=== PATIENT | female | born 1970 | race Caucasian/White ===

== ENCOUNTER 2016-06-05 11:14 | Emergency (ER) | payer SELFPAY ==
[~2016-06-05] VITALS: Ht 167.6 cm; Wt 104.4 kg
--- NOTE | 2016-06-05 12:20 | RAD ---
Exam performed: One view chest. Indication: palpitations/ ER 12. Patient had difficulty breathing last night with thinning of both hands. Date of Service: 06/05/2016 1:47 PM Comparison: None available. Single AP upright portable view chest findings: Cardiomediastinal silhouette is within limits of normal. No acute infiltrates, effusion or pneumothorax is detected. The bony structures are normal. Impression: No acute cardiopulmonary process is detected.
[2016-06-05 12:34] LABS: BASO % 1 % (0-3); EOS % 2 % (0-3); HEMATOCRIT 42.6 % (36.0-47.0); HEMOGLOBIN 14.8 g/dL (12.0-15.5); LYMPH # 2.1 x10^3/uL (1.0-4.8); LYMPH % 29 % (24-48); MEAN CORPUSCULAR HEMOGLOBIN 31 pg (25-35); MEAN CORPUSCULAR HGB CONC 35 g/dL (31-37); MEAN CORPUSCULAR VOLUME 89 fL (79-100); MONO % 6 % (0-9); NEUT % 62 % (31-73); PLATELET COUNT 234 x10^3/uL (140-400); RED BLOOD COUNT 4.79 x10^6/uL (3.50-5.40); RED CELL DISTRIBUTION WIDTH 12.6 % (11.5-14.5); WHITE BLOOD COUNT 7.1 x10^3/uL (4.0-11.0)
[2016-06-05 12:46] LABS: PROTHROMBIN TIME PATIENT 12.4 SEC (11.7-14.0)
--- NOTE | 2016-06-05 12:46 | RAD ---
PQRS Compliance Statement: One or more of the following individualized dose reduction techniques were utilized for this examination: 1. Automated exposure control 2. Adjustment of the mA and/or kV according to patient size 3. Use of iterative reconstruction technique CT of the head without contrast, 06/05/2016: History: Arm weakness and tingling The ventricles are within normal limits in size. There is no shift of the midline structures. There is no evidence of acute intracranial hemorrhage or mass effect. There is minimal mucosal thickening along the posterior aspect of the left maxillary sinus. IMPRESSION: No acute intracranial abnormality is detected.
[2016-06-05 12:48] LABS: CALCIUM 9.1 mg/dL (8.5-10.1); CREATININE 0.7 mg/dL (0.6-1.0); GFR 89.7; POTASSIUM 4.4 mmol/L (3.5-5.1)
[2016-06-05 13:00] LABS: CKMB INDEX 1.1 % (0-4); CKMB MASS 1.1 ng/mL (0.0-3.6)
[2016-06-05 13:10] LABS: BILIRUBIN,URINE NEGATIVE (NEG); GLUCOSE,URINE >=1000 mg/dL (NEG); NITRITE,URINE NEGATIVE (NEG); PROTEIN,URINE NEGATIVE (NEG-TRACE); UROBILINOGEN,URINE 0.2 mg/dL (0.2 mg/dL)
[2016-06-05 13:19] LABS: BACTERIA,URINE 0 /HPF (0-FEW); SQUAMOUS EPITHELIAL CELL,UR MOD /LPF; WBC,URINE 0 /HPF (0-4)
[2016-06-05 14:00] VITALS: BP 126/85
--- NOTE | 2016-06-05 14:13 | PHYS DOC ---
Past Medical History Past Medical History: Diabetes-Type II, High Cholesterol, Hypertension Past Surgical History: Other Additional Past Surgical Histo: D&C Alcohol Use: None Drug Use: None Adult General Chief Complaint Chief Complaint: WEAKNESS/GENERALIZED HPI HPI Patient is a 45 year old female with history of hypertension, high cholesterol , diabetes type 2 currently on insulin and remote history of palpitation who presents today with generalized weakness and tingling to bilateral fingers that occurred while she was having breakfast at 9 AM. Patient states the sensation is gone. Patient denies any headaches chest pain or shortness of breath. Patient states she had a normal stress test 15 years ago. She states she currently follows up with her PCP and she is on propranolol for hypertension. Review of Systems Review of Systems Constitutional: Generalized weakness Eyes: Denies change in visual acuity, redness, or eye pain [] HENT: Denies nasal congestion or sore throat [] Respiratory: Denies cough or shortness of breath [] Cardiovascular: No additional information not addressed in HPI [] GI: Denies abdominal pain, nausea, vomiting, bloody stools or diarrhea [] : Denies dysuria or hematuria [] Musculoskeletal: Denies back pain or joint pain [] Integument: Denies rash or skin lesions [] Neurologic: Tingling to fingers Endocrine: Denies polyuria or polydipsia [] Allergies Allergies Allergies Coded Allergies Type Severity Reaction Last Updated Verified No Known Drug Allergies 04/24/15 No Physical Exam Physical Exam Constitutional: Well developed, well nourished, no acute distress, non-toxic appearance. [] HENT: Normocephalic, atraumatic, bilateral external ears normal, oropharynx moist, no oral exudates, nose normal. [] Eyes: PERRLA, EOMI, conjunctiva normal, no discharge. [] Neck: Normal range of motion, no tenderness, supple, no stridor. [] Cardiovascular:Heart rate regular rhythm, no murmur [] Lungs & Thorax: Bilateral breath sounds clear to auscultation [] Abdomen: Bowel sounds normal, soft, no tenderness, no masses, no pulsatile masses. [] Skin: Warm, dry, no erythema, no rash. [] Back: No tenderness, no CVA tenderness. [] Extremities: No tenderness, no cyanosis, no clubbing, ROM intact, no edema. +2 bilateral pedal and radial pulses. Adequate ulna radial and media sensation to bilateral fingers. Neurologic: Alert and oriented X 3, normal motor function, normal sensory function, no focal deficits noted. Cranial nerves II through XII intact. Adequate sensations to bilateral upper and lower extremities. Psychologic: Affect normal, judgement normal, mood normal. [] Current Patient Data Vital Signs Vital Signs Date Time Temp Pulse Resp B/P Pulse Ox O2 Delivery O2 Flow Rate FiO2 06/05/16 14:00 76 126/85 97 Room Air 06/05/16 11:25 98.4 17 98.4 Lab Values Laboratory Tests Test 06/05/16 12:24 06/05/16 12:50 White Blood Count 7.1x10^3/uL (4.0-11.0) Red Blood Count 4.79x10^6/uL (3.50-5.40) Hemoglobin 14.8g/dL (12.0-15.5) Hematocrit 42.6% (36.0-47.0) Mean Corpuscular Volume 89fL (79-100) Mean Corpuscular Hemoglobin 31pg (25-35) Mean Corpuscular Hemoglobin Concent 35g/dL (31-37) Red Cell Distribution Width 12.6% (11.5-14.5) Platelet Count 234x10^3/uL (140-400) Neutrophils (%) (Auto) 62% (31-73) Lymphocytes (%) (Auto) 29% (24-48) Monocytes (%) (Auto) 6% (0-9) Eosinophils (%) (Auto) 2% (0-3) Basophils (%) (Auto) 1% (0-3) Neutrophils # (Auto) 4.4x10^3uL (1.8-7.7) Lymphocytes # (Auto) 2.1x10^3/uL (1.0-4.8) Monocytes # (Auto) 0.5x10^3/uL (0.0-1.1) Eosinophils # (Auto) 0.2x10^3/uL (0.0-0.7) Basophils # (Auto) 0.0x10^3/uL (0.0-0.2) Prothrombin Time 12.4SEC (11.7-14.0) Prothrombin Time INR 1.0 (0.8-1.1) D-Dimer (Zuleyka) 0.33ug/mlFEU (0.00-0.50) Sodium Level 140mmol/L (136-145) Potassium Level 4.4mmol/L (3.5-5.1) Chloride Level 103mmol/L (98-107) Carbon Dioxide Level 26mmol/L (21-32) Anion Gap 11 (6-14) Blood Urea Nitrogen 14mg/dL (7-20) Creatinine 0.7mg/dL (0.6-1.0) Estimated GFR (Cockcroft-Gault) 89.7 Glucose Level 308mg/dL (70-99) H Calcium Level 9.1mg/dL (8.5-10.1) Magnesium Level 2.0mg/dL (1.8-2.4) Creatine Kinase 96U/L (26-192) Creatine Kinase MB (Mass) 1.1ng/mL (0.0-3.6) Creatine Kinase MB Relative Index 1.1% (0-4) Troponin I Quantitative < 0.017ng/mL (0.000-0.055) SN-Jax-W-Type Natriuretic Peptide 19pg/mL (0-124) Thyroid Stimulating Hormone (TSH) 2.283uIU/mL (0.358-3.74) Urine Collection Type Unknown Urine Color Yellow Urine Clarity Clear Urine pH 6.0 Urine Specific [place] >=1.030 Urine Protein Negativemg/dL (NEG-TRACE) Urine Glucose (UA) >=1000mg/dL (NEG) Urine Ketones (Stick) Negativemg/dL (NEG) Urine Blood Negative (NEG) Urine Nitrite Negative (NEG) Urine Bilirubin Negative (NEG) Urine Urobilinogen Dipstick 0.2mg/dL (0.2 mg/dL) Urine Leukocyte Esterase Negative (NEG) Urine RBC 3-5/HPF (0-2) Urine WBC 0/HPF (0-4) Urine Squamous Epithelial Cells Mod/LPF Urine Bacteria 0/HPF (0-FEW) Laboratory Tests 06/05/16 12:24 Laboratory Tests 06/05/16 12:24 EKG EKG [] Radiology/Procedures Radiology/Procedures [] Course & Med Decision Making Course & Med Decision Making Pertinent Labs and Imaging studies reviewed. (See chart for details) Patient is in the ED with complaint of tingling to bilateral fingers as well as generalized weakness that occurred today at 9 am while having breakfast. Patient denies any symptoms right now. Denies any chest pain or shortness of breath. She states she has a lot of stress in her life right now. EKG interpreted by Dr. Nader marrufo, leftward axis, QRS interval 86, heart rate 74. CBC with no acute findings. Chest x-ray interpreted by radiologist is negative for any acute findings, CT of the head is negative for any acute findings, troponin is normal, CK-MB is normal. CMP with glucose of 308. Patient states she is supposed to take her noon insulin. She requested to take it at home a note from the ED. Her numbness or tingling to bilateral hands could be neuropathy from diabetes which we talked about in the ED. I requested patient follow-up with the PCP next week. Her vitals are stable. She is provided return precautions and discharged in stable condition. Dragon Disclaimer Dragon Disclaimer This electronic medical record was generated, in whole or in part, using a voice recognition dictation system. Departure Departure Impression: Primary Impression: Neuropathy in diabetes Additional Impressions: Weakness Hyperglycemia Disposition: 01 HOME, SELF-CARE Condition: STABLE Referrals: UNKNOWN PCP NAME (PCP) Follow-up with your own doctor as soon as possible Patient Instructions: Diabetic Neuropathy, Weakness, [id number] Additional Instructions: You were seen for multiple complaints. Your cardiac workup is negative. Your chest xray and Ct of the head were normal. Your lab work shows you have diabetes. Your blood sugar was 308. Use your insulin as prescribed by your doctor. Push fluids. Follow-up with your doctor in the next 1-7 days. Come back to the ED for any concerning symptoms or worsening of current symptoms. Problem Qualifiers Primary Impression: Neuropathy in diabetes Diabetes mellitus type: type 2 Diabetes mellitus complication detail: diabetic polyneuropathy Qualified Code: E11.42 - Type 2 diabetes mellitus with diabetic polyneuropathy MILDRED CARROLL APRN Jun 05, 2016 14:13
--- NOTE | 2016-06-05 15:13 | EKG ---
[facility] [address] [place] [address] Test Date: 2016-06-05 Test Time: 11:25:26 Pat Name: KIM NIXON Department: Room: Gender: F Platform Engineer: : 1970 Requested By: MILDRED CARROLL Order Number: [id number] Reading MD: Giovanny Luna Measurements Intervals [place] Rate: 74 P: 25 KS: 164 QRS: -15 QRSD: 86 T: 23 QT: 356 QTc: 400 Interpretive Statements SINUS RHYTHM LEFTWARD AXIS RI6.01 Unconfirmed report No previous ECG available for comparison Electronically Signed On 06-08-2016 13:56:25 CLAY WASHER by Giovanny Luna
== END 2016-06-05 14:20 | disposition home or self-care (01) ==
LOC: ER 11:14
DX: E11.40 Type 2 diabetes mellitus with diabetic neuropathy, unspecified (principal); R53.1 Weakness; E11.65 Type 2 diabetes mellitus with hyperglycemia; E78.00 Pure hypercholesterolemia, unspecified; I10 Essential (primary) hypertension
CPT/HCPCS: 36415; 70450; 71010; 80048; 81001; 82553; 83735; 83880; 84443; 84484; 85027; 85379; 85610; 93005; 99285-25

== ENCOUNTER 2018-07-05 10:56 | Emergency (ER) | payer SELFPAY ==
[~2018-07-05] VITALS: Ht 167.6 cm; Wt 99.8 kg
[2018-07-05 11:18] VITALS: BP 173/97
[2018-07-05] MEDS ORDERED: IV NORMAL SALINE 1000ML BAG 1,000 ML IV ONE (11:30)
[2018-07-05] MEDS ORDERED: MECLIZINE HCL 12.5 MG TABLET. PO ONE (11:30)
[2018-07-05] MEDS ORDERED: ONDANSETRON PF 4 MG/2 ML VIAL. IV ONE (11:30)
[2018-07-05 11:36] LABS: BILIRUBIN,URINE NEGATIVE (NEG); CLARITY,URINE CLEAR; COLOR,URINE YELLOW; NITRITE,URINE NEGATIVE (NEG); PROTEIN,URINE NEGATIVE (NEG-TRACE); UROBILINOGEN,URINE 0.2 mg/dL (0.2 mg/dL)
[2018-07-05 11:40] LABS: SQUAMOUS EPITHELIAL CELL,UR MANY /LPF
[2018-07-05 11:41] LABS: BACTERIA,URINE FEW /HPF (0-FEW); RBC,URINE 0 /HPF (0-2)
[2018-07-05 11:42] LABS: BARBITURATES NEG (NEG); BENZODIAZEPINES NEG (NEG); CANNABINOIDS NEG (NEG); COCAINE NEG (NEG); METHADONE NEG (NEG); OPIATES NEG (NEG); PHENCYCLIDINE NEG (NEG)
[2018-07-05 11:43] LABS: AMPHETAMINE/METHAMPHETAMINE NEG (NEG)
[2018-07-05 11:58] LABS: BASO % 1 % (0-3); EOS # 0.1 x10^3/uL (0.0-0.7); EOS % 1 % (0-3); HEMATOCRIT 42.3 % (36.0-47.0); LYMPH # 1.8 x10^3/uL (1.0-4.8); LYMPH % 25 % (24-48); MEAN CORPUSCULAR HEMOGLOBIN 30 pg (25-35); MEAN CORPUSCULAR HGB CONC 33 g/dL (31-37); MEAN CORPUSCULAR VOLUME 90 fL (79-100); MONO # 0.4 x10^3/uL (0.0-1.1); MONO % 6 % (0-9); NEUT # 4.9 x10^3uL (1.8-7.7); NEUT % 67 % (31-73); PLATELET COUNT 245 x10^3/uL (140-400); RED BLOOD COUNT 4.71 x10^6/uL (3.50-5.40); RED CELL DISTRIBUTION WIDTH 13.1 % (11.5-14.5); WHITE BLOOD COUNT 7.2 x10^3/uL (4.0-11.0)
--- NOTE | 2018-07-05 12:02 | RAD ---
EXAM: Chest, single view. HISTORY: Cough. Dizziness. COMPARISON: 06/05/2016. FINDINGS: A frontal view of the chest is obtained. There is no infiltrate, pleural effusion or pneumothorax. The heart is normal in size. IMPRESSION: No acute pulmonary finding. Electronically signed by: Jeanette Byrd MD (07/05/2018 11:58 AM) [facility]
[2018-07-05 12:17] LABS: CALCIUM 9.1 mg/dL (8.5-10.1); CREATININE 0.8 mg/dL (0.6-1.0); GFR 76.2; POTASSIUM 4.2 mmol/L (3.5-5.1)
[2018-07-05 12:23] LABS: ALBUMIN 3.4 g/dL (3.4-5.0); ALBUMIN/GLOBULIN RATIO 0.9 (1.0-1.7); MAGNESIUM 1.9 mg/dL (1.8-2.4); TOTAL BILIRUBIN 0.5 mg/dL (0.2-1.0); TOTAL PROTEIN 7.4 g/dL (6.4-8.2)
--- NOTE | 2018-07-05 12:40 | EKG ---
[facility] [address] [place] [address] Test Date: 2018-07-05 Test Time: 11:38:23 Pat Name: KIM NIXON Department: Room: Gender: F Iap Displays Analyst: : 1970 Requested By: MILDRED CARROLL Order Number: [id number] Reading MD: Juventino Beckman MD Measurements Intervals [place] Rate: 73 P: MA: QRS: -14 QRSD: 84 T: 9 QT: 366 QTc: 406 Interpretive Statements SR NON-SPECIFIC ST/T CHANGES Electronically Signed On 07-05-2018 15:51:52 CDT by Juventino Beckman MD
--- NOTE | 2018-07-05 13:34 | PHYS DOC ---
Past Medical History Past Medical History: Diabetes-Type II, GERD, High Cholesterol, Hypertension Past Surgical History: Other Additional Past Surgical Histo: D&C Alcohol Use: None Drug Use: None Adult General Chief Complaint Chief Complaint: ABDOMINAL PAIN HPI HPI Patient is a 47 year old female with a history of hypertension, diabetes type 2 , high cholesterol, who presents to the ED today with multiple complaints. We asked her what she is being seen for, patient requested her phone from her daughter, she had at least of chief complaints almost a page length on the screen of the phone. They include elevated blood glucose, headache, dizziness, nausea, bilateral upper abdomen pain, kidney pain, concern she could have a UTI or kidney infection, right ear pain, cough for months, dry mouth, thirsty. Most of the symptoms have been going on for a while. Patient denies any fever. Denies any diarrhea or vomiting. She states her blood glucose usually runs high but she is on several medications including insulin which she did not use after eating today. Review of Systems Review of Systems Constitutional: Denies fever or chills [] Eyes: Denies change in visual acuity, redness, or eye pain [] HENT: Denies nasal congestion or sore throat [] Respiratory: Reports chronic cough, denies shortness of breath [] Cardiovascular: No additional information not addressed in HPI [] GI: Reports nausea. Denies abdominal pain, nausea, bloody stools or diarrhea [] : Reports kidney pain. Denies dysuria or hematuria [] Musculoskeletal: Denies back pain or joint pain [] Integument: Denies rash or skin lesions [] Neurologic: Reports dizziness, headache denies focal weakness or sensory changes [] Endocrine: Reports hyperglycemia All other systems were reviewed and found to be within normal limits, except as documented in this note. Current Medications Current Medications Current Medications Medications (Trade) Dose Ordered Sig/Scarlett Start Time Stop Time Status Last Admin Dose Admin Meclizine HCl (Antivert) 25 mg 1X ONCE 07/05/18 11:30 07/05/18 11:31 DC Ondansetron HCl (Zofran) 4 mg 1X ONCE 07/05/18 11:30 07/05/18 11:31 DC Sodium Chloride 1,000 ml @ 1,000 mls/hr 1X ONCE 07/05/18 11:30 07/05/18 12:29 DC Allergies Allergies Allergies Coded Allergies Type Severity Reaction Last Updated Verified No Known Drug Allergies 04/24/15 No Physical Exam Physical Exam Constitutional: Well developed, well nourished, no acute distress, non-toxic appearance. [] HENT: Normocephalic, atraumatic, bilateral external ears normal, oropharynx moist, no oral exudates, nose normal. [] Eyes: PERRLA, EOMI, conjunctiva normal, no discharge. [] Neck: Normal range of motion, no tenderness, supple, no stridor. [] Cardiovascular:Heart rate regular rhythm, no murmur [] Lungs & Thorax: Bilateral breath sounds clear to auscultation [] Abdomen: Bowel sounds normal, soft, no tenderness, no masses, no pulsatile masses. [] Skin: Warm, dry, no erythema, no rash. [] Back: No tenderness, no CVA tenderness. [] Extremities: No tenderness, no cyanosis, no clubbing, ROM intact, no edema. [] Neurologic: Alert and oriented X 3, normal motor function, normal sensory function, no focal deficits noted. [] Psychologic: Affect normal, judgement normal, mood normal. [] Current Patient Data Vital Signs Vital Signs Date Time Temp Pulse Resp B/P (MAP) Pulse Ox O2 Delivery O2 Flow Rate FiO2 07/05/18 11:18 98.4 79 18 173/97 (122) 98 Room Air 98.4 Lab Values Laboratory Tests Test 07/05/18 10:00 07/05/18 11:16 07/05/18 11:45 Urine Collection Type Unknown Urine Color Yellow Urine Clarity Clear Urine pH 5.0 Urine Specific [place] >=1.030 Urine Protein Negative mg/dL (NEG-TRACE) Urine Glucose (UA) >=1000 mg/dL (NEG) Urine Ketones (Stick) Negative mg/dL (NEG) Urine Blood Negative (NEG) Urine Nitrite Negative (NEG) Urine Bilirubin Negative (NEG) Urine Urobilinogen Dipstick 0.2 mg/dL (0.2 mg/dL) Urine Leukocyte Esterase Negative (NEG) Urine RBC 0 /HPF (0-2) Urine WBC 1-4 /HPF (0-4) Urine Squamous Epithelial Cells Many /LPF Urine Bacteria Few /HPF (0-FEW) Urine Opiates Screen Neg (NEG) Urine Methadone Screen Neg (NEG) Urine Barbiturates Neg (NEG) Urine Phencyclidine Screen Neg (NEG) Urine Amphetamine/Methamphetamine Neg (NEG) Urine Benzodiazepines Screen Neg (NEG) Urine Cocaine Screen Neg (NEG) Urine Cannabinoids Screen Neg (NEG) Urine Ethyl Alcohol Neg (NEG) Glucose (Fingerstick) 312 mg/dL (70-99) H White Blood Count 7.2 x10^3/uL (4.0-11.0) Red Blood Count 4.71 x10^6/uL (3.50-5.40) Hemoglobin 14.0 g/dL (12.0-15.5) Hematocrit 42.3 % (36.0-47.0) Mean Corpuscular Volume 90 fL (79-100) Mean Corpuscular Hemoglobin 30 pg (25-35) Mean Corpuscular Hemoglobin Concent 33 g/dL (31-37) Red Cell Distribution Width 13.1 % (11.5-14.5) Platelet Count 245 x10^3/uL (140-400) Neutrophils (%) (Auto) 67 % (31-73) Lymphocytes (%) (Auto) 25 % (24-48) Monocytes (%) (Auto) 6 % (0-9) Eosinophils (%) (Auto) 1 % (0-3) Basophils (%) (Auto) 1 % (0-3) Neutrophils # (Auto) 4.9 x10^3uL (1.8-7.7) Lymphocytes # (Auto) 1.8 x10^3/uL (1.0-4.8) Monocytes # (Auto) 0.4 x10^3/uL (0.0-1.1) Eosinophils # (Auto) 0.1 x10^3/uL (0.0-0.7) Basophils # (Auto) 0.0 x10^3/uL (0.0-0.2) Sodium Level 139 mmol/L (136-145) Potassium Level 4.2 mmol/L (3.5-5.1) Chloride Level 102 mmol/L (98-107) Carbon Dioxide Level 25 mmol/L (21-32) Anion Gap 12 (6-14) Blood Urea Nitrogen 7 mg/dL (7-20) Creatinine 0.8 mg/dL (0.6-1.0) Estimated GFR (Cockcroft-Gault) 76.2 BUN/Creatinine Ratio 9 (6-20) Glucose Level 354 mg/dL (70-99) H Calcium Level 9.1 mg/dL (8.5-10.1) Magnesium Level 1.9 mg/dL (1.8-2.4) Total Bilirubin 0.5 mg/dL (0.2-1.0) Aspartate Amino Transferase (AST) 28 U/L (15-37) Alanine Aminotransferase (ALT) 45 U/L (14-59) Alkaline Phosphatase 120 U/L (46-116) H Creatine Kinase 78 U/L (26-192) Creatine Kinase MB (Mass) 1.6 ng/mL (0.0-3.6) Creatine Kinase MB Relative Index 2.1 % (0-4) Troponin I Quantitative < 0.017 ng/mL (0.000-0.055) IC-Gik-F-Type Natriuretic Peptide 22 pg/mL (0-124) Total Protein 7.4 g/dL (6.4-8.2) Albumin 3.4 g/dL (3.4-5.0) Albumin/Globulin Ratio 0.9 (1.0-1.7) L Lipase 156 U/L (73-393) Thyroid Stimulating Hormone (TSH) 2.046 uIU/mL (0.358-3.74) Laboratory Tests 07/05/18 11:45 Laboratory Tests 07/05/18 11:45 EKG EKG 11:[address] Crabtree sinus rhythm heart rate 73 no STEMI Radiology/Procedures Radiology/Procedures [] Course & Med Decision Making Course & Med Decision Making Pertinent Labs and Imaging studies reviewed. (See chart for details) This is a 47-year-old female patient who presents to the ED today with multiple complaints including elevated blood glucose, headache, dizziness, nausea, bilateral upper abdomen pain, kidney pain, concern she could have a UTI or kidney infection, right ear pain, cough for months, dry mouth, thirsty. Most of the symptoms have been going on for a while. Patient also started refusing part of the workup. She refused IVs. Refused CT of the head. Chest x-rays negative for any acute findings, EKG was negative. CBC with no acute findings, CMP with glucose of 354, anion gap is normal. Urine analysis is negative for infection.Patient reminded about blood glucose management, her blood pressure was also 173/97, she was reminded about blood pressure management. She apparently states she eats foods like pastas, potatoes , bread which are elevating her glucose. Reminded patient of a diabetic diet and HTN diet. Follow-up with primary care doctor. She refused insulin in the ED. Dragon Disclaimer Dragon Disclaimer This electronic medical record was generated, in whole or in part, using a voice recognition dictation system. Departure Departure Impression: Primary Impression: Hyperglycemia Additional Impressions: Dizziness HTN (hypertension) Disposition: HOME, SELF-CARE Condition: STABLE Referrals: UNKNOWN PCP NAME (PCP) follow up with your doctor in 1 week Patient Instructions: Hyperglycemia, Hypertension Additional Instructions: You were seen in the emergency room for multiple complaints, the main concern today your blood glucose is 354, this is very high. Your blood pressure was also high. Please work on your diabetic diet, exercise, and the use of your medications appropriately. Please follow-up with your doctor in 1-2 weeks. Problem Qualifiers Additional Impressions: HTN (hypertension) Hypertension type: unspecified Qualified Codes: I10 - Essential (primary) hypertension MILDRED CARROLL APPLICATION SYSTEMS ENGINEER Jul 05, 2018 13:34
[2018-07-05 13:37] LABS: INFLUENZA A PATIENT NEGATIVE (NEGATIVE); INFLUENZA B PATIENT NEGATIVE (NEGATIVE)
== END 2018-07-05 13:59 | disposition home or self-care (01) ==
LOC: ER 10:56
DX: E11.65 Type 2 diabetes mellitus with hyperglycemia (principal); R42 Dizziness and giddiness; I10 Essential (primary) hypertension; E78.00 Pure hypercholesterolemia, unspecified; K21.9 Gastro-esophageal reflux disease without esophagitis
CPT/HCPCS: 36415; 71045; 80053; 80307; 81001; 82553; 82962; 83690; 83735; 83880; 84443; 84484; 85025; 87804; 93005; 99284